=== PATIENT | female | born 2000 | race Caucasian/White ===

== ENCOUNTER 2022-07-09 02:55 | Emergency (ER) | payer SELFPAY ==
[~2022-07-09] VITALS: Ht 152.4 cm; Wt 52.3 kg
[2022-07-09 03:59] VITALS: BP 122/85; PULSE 73; TEMP 98
== END 2022-07-09 03:59 | disposition home or self-care (01) ==
LOC: COL.ER 02:55
DX: S61.212A Laceration without foreign body of right middle finger without damage to nail, initial encounter (principal); S61.214A Laceration without foreign body of right ring finger without damage to nail, initial encounter; S61.216A Laceration without foreign body of right little finger without damage to nail, initial encounter; Z28.310 Unvaccinated for COVID-19; W01.0XXA Fall on same level from slipping, tripping and stumbling without subsequent striking against object, initial encounter; W24.1XXA Contact with transmission devices, not elsewhere classified, initial encounter; Y92.59 Other trade areas as the place of occurrence of the external cause; Y99.0 Civilian activity done for income or pay